=== PATIENT | male | born 1955 | race Caucasian/White ===

== ENCOUNTER 2021-04-10 16:28 | Emergency (ER) | payer OTHER ==
[~2021-04-10] VITALS: Ht 185.4 cm; Wt 95.0 kg
[2021-04-10 17:10] VITALS: BP 159/82
--- NOTE | 2021-04-10 19:47 | NUR ---
TASK RN: NIL X 1 WHEN CALLED FOR REPEAT VS.
--- NOTE | 2021-04-10 20:02 | NUR ---
rn pacu: nil x 2 when called for repeat vs.
--- NOTE | 2021-04-10 20:32 | NUR ---
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
== END 2021-04-10 20:34 | disposition left against medical advice (07) ==
LOC: ED 19:00
DX: M79.662 Pain in left lower leg (principal); Z53.21 Procedure and treatment not carried out due to patient leaving prior to being seen by health care provider

== ENCOUNTER 2021-05-04 02:09 | Emergency (ER) | payer MEDICAID, OTHER ==
[~2021-05-04] VITALS: Ht 182.9 cm; Wt 100.3 kg
[2021-05-04] MEDS ORDERED: ACETAMINOPHEN 500 MG TABLET PO ONE (05:30)
[2021-05-04] MEDS ORDERED: DOXYCYCLINE 100MG TABLET PO ONE (05:30)
[2021-05-04] MEDS ORDERED: ACETAMINOPHEN 500 MG TABLET ONE (05:33)
[2021-05-04] MEDS ORDERED: DOXYCYCLINE 100MG TABLET ONE (05:33)
[2021-05-04 05:38] VITALS: BP 157/70
[2021-05-04] MEDS ORDERED: PLEASE ENTER ALLERGIES MC SCH (06:00)
== END 2021-05-04 06:14 | disposition home or self-care (01) ==
LOC: ED 06:01
DX: L03.116 Cellulitis of left lower limb (principal); I10 Essential (primary) hypertension
CPT/HCPCS: 99283

== ENCOUNTER 2021-05-25 16:41 | Emergency (ER) | payer MEDICAID ==
[~2021-05-25] VITALS: Ht 182.9 cm; Wt 104.0 kg
[2021-05-25 16:43] VITALS: BP 182/88
== END 2021-05-25 19:17 | disposition home or self-care (01) ==
LOC: ED 18:15
DX: L03.116 Cellulitis of left lower limb (principal); F17.210 Nicotine dependence, cigarettes, uncomplicated